=== PATIENT | male | born 1955 | race Caucasian/White ===

== ENCOUNTER 2016-04-29 17:57 | Emergency (ER) | payer MEDICAID, OTHER ==
[~2016-04-29] VITALS: Ht 188 cm; Wt 95.0 kg
[2016-04-29 17:58] VITALS: BP 184/104; PULSE 100; RESP 20; TEMP 97.8; O2SAT 98
[2016-04-29] MEDS ORDERED: ATOR1TAB18 PO (18:35)
[2016-04-29] MEDS ORDERED: OXCA600T PO (18:35)
[2016-04-29] MEDS ORDERED: POTA-245 PO (18:35)
[2016-04-29] MEDS ORDERED: FURO1TAB60 PO (18:35)
[2016-04-29] MEDS ORDERED: OMEP20TA PO (18:35)
[2016-04-29] MEDS ORDERED: AMLO5TAB2 PO (18:35)
[2016-04-29] MEDS ORDERED: SOTA80TA PO (18:35)
[2016-04-29] MEDS ORDERED: FURO1TAB61 PO (18:35)
[2016-04-29] MEDS ORDERED: TERA1CAP3 PO (18:35)
[2016-04-29] MEDS ORDERED: CLOP75TA PO (18:35)
[2016-04-29] MEDS ORDERED: ASPI325T PO (18:35)
[2016-04-29] MEDS ORDERED: SODIUM CHLORIDE 0.9% FLUSH 5 ML FLUSH IVF PRN (19:15)
[2016-04-29] MEDS ORDERED: KETOROLAC TROMETHAMINE 30 MG/ML (IVP) VIAL IVP ONE (19:15)
[2016-04-29] MEDS ORDERED: ONDANSETRON HCL 4 MG/2 ML VIAL IVP ONE (19:15)
[2016-04-29 19:41] VITALS: BP 147/90; PULSE 74; RESP 19; O2SAT 98
[2016-04-29 20:00] LABS: AUTOMATED NEUTROPHIL # 8.7 TH/MM3 (1.8-7.7); BASOPHIL # 0.1 TH/MM3 (0-0.2); BASOPHIL % 0.8 % (0.0-2.0); EOSINOPHIL # 0.8 TH/MM3 (0-0.4); EOSINOPHIL % 6.6 % (0.0-4.0); HEMATOCRIT 45.1 % (39.0-51.0); HEMO FLAGS DIFF FINAL; LYMPH % 11.4 % (9.0-44.0); LYMPHOCYTE # 1.4 TH/MM3 (1.0-4.8); MEAN CELL VOLUME 80.6 FL (80.0-100.0); MEAN CORPUSCULAR HEMOGLOBIN 27.8 PG (27.0-34.0); MEAN CORPUSCULAR HGB CONC 34.5 % (32.0-36.0); MONO % 10.8 % (0.0-8.0); NEUT % 70.4 % (16.0-70.0); PLATELET COUNT 266 TH/MM3 (150-450); RED CELL DISTRIBUTION WIDTH 16.4 % (11.6-17.2); WHITE BLOOD COUNT 12.4 TH/MM3 (4.0-11.0)
[2016-04-29 20:11] LABS: APTT (PATIENT) 28.3 SEC (24.3-30.1); INTERNATIONAL NORMALIZED RATIO 1.1 RATIO; PROTHROMBIN TIME - PATIENT 11.9 SEC (9.8-11.6)
[2016-04-29 20:42] LABS: ALKALINE PHOSPHATASE 110 U/L (45-117); ALT (GPT) 17 U/L (12-78); ANION GAP 10 MEQ/L (5-15); AST (GOT) 24 U/L (15-37); BICARBONATE 23.2 MEQ/L (21.0-32.0); BLOOD UREA NITROGEN 19 MG/DL (7-18); CHLORIDE 105 MEQ/L (98-107); GLOMERULAR FILTRATION RATE 58 ML/MIN (>89); POTASSIUM 3.2 MEQ/L (3.5-5.1); SODIUM (NA) 138 MEQ/L (136-145); TOTAL BILIRUBIN ADULT 0.8 MG/DL (0.2-1.0)
--- NOTE | 2016-04-29 20:43 | PD ---
HPI Chief Complaint: GI Complaint Time Seen by Provider: 19:04 Travel History International Travel<30 days: No Contact w/Intl Traveler<30days: No Traveled to known affect area: No History of Present Illness HPI 61yo M with PMH of seizure on trileptal, CHF s/p pacemaker, HTN presents to the ED with c/o NBNB vomiting and periumbilical abdominal pain for 2 days. Pt also with nonbloody diarrhea today. +Chills. Denies any fever, chest pain, sob, urinary complaints, focal weakness or numbness. Pt is from [place] and is here for vacation has not been able to keep anything down. PFSH Past Medical History Hx Anticoagulant Therapy: Yes Cardiac Catheterization: Yes High Cholesterol: Yes Hypertension: Yes Inguinal Hernia: Yes Seizures: Yes Past Surgical History Appendectomy: Yes Cardiac Surgery: Yes (stent) Coronary Artery Bypass Graft: Yes (2006) Coronary Stent: Yes Joint Replacement: Yes (R knee replacement) Social History Alcohol Use: No Tobacco Use: Yes (pack day) Substance Use: Yes (marijuana 4 days ago) Allergies-Medications (Allergen,Severity, Reaction): Coded Allergies: Celexa (Verified Allergy, Unknown, 04/29/16) Codeine (Verified Allergy, Unknown, 04/29/16) Metoprolol (Verified Allergy, Unknown, 04/29/16) Morphine (Verified Allergy, Unknown, 04/29/16) Penicillin (Verified Allergy, Unknown, 04/29/16) Reported Meds & Prescriptions Reported Meds & Active Scripts Active Zofran Odt (Ondansetron Odt) 4 Mg Tab 4 Mg SL Q6HR PRN Reported Aspirin 325 Mg Tab 325 Mg PO DAILY Terazosin (Terazosin HCl) 1 Mg Cap 1 Mg PO HS Klor-Con M20 (Potassium Chloride Microencaps) 20 Meq Tab 20 Meq PO DAILY Lasix (Furosemide) 40 Mg Tab 40 Mg PO BID Lasix (Furosemide) 80 Mg Tab 80 Mg PO DAILY Clopidogrel (Clopidogrel Bisulfate) 75 Mg Tab 75 Mg PO DAILY Oxcarbazepine 600 Mg Tab 600 Mg PO BID Sotalol (Sotalol HCl) 80 Mg Tab 80 Mg PO BID Omeprazole 20 Mg Tab 20 Mg PO BID Atorvastatin (Atorvastatin Calcium) 80 Mg Tab 80 Mg PO HS Amlodipine (Amlodipine Besylate) 5 Mg Tab 5 Mg PO BID Review of Systems Except as stated in HPI: all other systems reviewed are Neg Physical Exam Narrative GENERAL: 61yo M in mild distress. SKIN: Warm and dry. HEAD: Atraumatic. Normocephalic. EYES: Pupils equal and round. No scleral icterus. No injection or drainage. ENT: No nasal bleeding or discharge. Mucous membranes pink and moist. NECK: Trachea midline. No JVD. CARDIOVASCULAR: Regular rate and rhythm. No murmur appreciated. RESPIRATORY: No accessory muscle use. Clear to auscultation. Breath sounds equal bilaterally. GASTROINTESTINAL: Abdomen soft, +TTP periumbilical region. Mild epigastric ttp. No rebound tenderness or guarding. MUSCULOSKELETAL: No obvious deformities. No clubbing. No cyanosis. No edema. NEUROLOGICAL: Awake and alert. No obvious cranial nerve deficits. Motor grossly within normal limits. Normal speech. PSYCHIATRIC: Appropriate mood and affect; insight and judgment normal. Data Data Last Documented VS Vital Signs Date Time Temp Pulse Resp B/P Pulse Ox O2 Delivery O2 Flow Rate FiO2 04/29/16 19:41 74 19 147/90 98 Room Air 04/29/16 17:58 97.8 Orders Complete Blood Count With Diff (04/29/16 19:09) Comprehensive Metabolic Panel (04/29/16 19:09) Lipase (04/29/16 19:09) Prothrombin Time / Inr (Pt) (04/29/16 19:09) Act Partial Throm Time (Ptt) (04/29/16 19:09) Urinalysis - C+S If Indicated (04/29/16 19:09) Iv Access Insert/Monitor (04/29/16 19:09) Ecg Monitoring (04/29/16 19:09) Oximetry (04/29/16 19:09) Ondansetron Inj (Zofran Inj) (04/29/16 19:15) Sodium Chloride 0.9% Flush (Ns Flush) (04/29/16 19:15) Electrocardiogram (04/29/16 19:09) Ketorolac Inj (Toradol Inj) (04/29/16 19:15) Trileptal (Oxycarbazapine) (04/29/16 20:43) Potassium Chloride (Kcl) (04/29/16 21:00) Labs Laboratory Tests Test 04/29/16 19:00 White Blood Count 12.4 TH/MM3 Red Blood Count 5.60 MIL/MM3 Hemoglobin 15.6 GM/DL Hematocrit 45.1 % Mean Corpuscular Volume 80.6 FL Mean Corpuscular Hemoglobin 27.8 PG Mean Corpuscular Hemoglobin 34.5 % Concent Red Cell Distribution Width 16.4 % Platelet Count 266 TH/MM3 Mean Platelet Volume 10.5 FL Neutrophils (%) (Auto) 70.4 % Lymphocytes (%) (Auto) 11.4 % Monocytes (%) (Auto) 10.8 % Eosinophils (%) (Auto) 6.6 % Basophils (%) (Auto) 0.8 % Neutrophils # (Auto) 8.7 TH/MM3 Lymphocytes # (Auto) 1.4 TH/MM3 Monocytes # (Auto) 1.3 TH/MM3 Eosinophils # (Auto) 0.8 TH/MM3 Basophils # (Auto) 0.1 TH/MM3 CBC Comment DIFF FINAL Differential Comment Prothrombin Time 11.9 SEC Prothromb Time International 1.1 RATIO Ratio Activated Partial 28.3 SEC Thromboplast Time Sodium Level 138 MEQ/L Potassium Level 3.2 MEQ/L Chloride Level 105 MEQ/L Carbon Dioxide Level 23.2 MEQ/L Anion Gap 10 MEQ/L Blood Urea Nitrogen 19 MG/DL Creatinine 1.26 MG/DL Estimat Glomerular Filtration 58 ML/MIN Rate Random Glucose 81 MG/DL Calcium Level 9.2 MG/DL Total Bilirubin 0.8 MG/DL Aspartate Amino Transf 24 U/L (AST/SGOT) Alanine Aminotransferase 17 U/L (ALT/SGPT) Alkaline Phosphatase 110 U/L Total Protein 7.8 GM/DL Albumin 4.0 GM/DL Lipase 76 U/L [facility] Medical Decision Making Medical Screen Exam Complete: Yes Emergency Medical Condition: Yes Interpretation(s) EKG: Atrial paced rhythm. Normal axis. Q wave V1, V2. LVH. Differential Diagnosis Acute gastroenteritis vs. colitis vs. pancreatitis vs. dehydration vs. UTI Narrative Course 61yo M with multiple PMH here with vomiting, abdominal pain and diarrhea. Impression is more gastroenteritis. Labs reviewed, mild leukocytosis. K: 3.2, replaced orally. Lipase normal. Pt given zofran, toradol and states he is no longer nauseous. Pt did not want to wait for the rest of the blood work to come back initially and asked me to pull out his IV. Pt did not allow me to reevaluate and is upset that he has been in the ED for this long. Pt is signing out against medical advice. VS stable. Will give pt zofran prescription. AMA: The risks of leaving against medical advice without further evaluation treatment were discussed with the patient. These risks include cardiac dysfunction, cardiac dysrhythmia, possible heart attack, possible stroke or . The patient indicated understanding of these risks and appeared to have the capacity to make this decision. Diagnosis Primary Impression: Vomiting Qualified Code: R11.10 - Non-intractable vomiting, presence of nausea not specified, unspecified vomiting type Patient Instructions: General Instructions Departure Forms: Tests/Procedures Additional Instructions: Please follow up with your PMD or return to the ED if you change your mind. Med/Other Pt SpecificInfo: Prescription(s) given Scripts Ondansetron Odt (Zofran Odt)4 Mg Tab4 Mg SL Q6HR PRN (Nausea/Vomiting) #10 TAB Ref 0 Prov:Susan Brice DO 04/29/16 Disposition: 07 AGAINST MEDICAL ADVICE Condition: Stable Susan Brice DO Apr 29, 2016 20:43
[2016-04-29] MEDS ORDERED: ZOFR4TAB3 SL (20:57)
[2016-04-29] MEDS ORDERED: POTASSIUM CHLORIDE 20 MEQ CONTROLLED RELEASE TAB PO ONE (21:00)
--- NOTE | 2016-04-30 18:13 | EKG ---
Date Performed: 04/29/2016 Time Performed: 19:39:36 PTAGE: 61 years EKG: Sinus rhythm with premature atrial contractions demand atrial Pacing. MODERATE VOLTAGE CRITERIA FOR LVH, CONSIDER NORMAL VARIANT POSSIBLE SEPTAL MYOCARDIAL INFARCTION MODERATE T-WAVE ABNORMALITY, CONSIDER LATERAL I SCHEMIA ABNORMAL ECG NO PREVIOUS TRACING DOCTOR: Drew Boss Interpretating Date/Time 04/30/2016 18:12:12
== END 2016-04-29 21:20 | disposition left against medical advice (07) ==
LOC: NEPA 17:57
DX: R11.0 Nausea (principal); I10 Essential (primary) hypertension; I49.1 Atrial premature depolarization; E78.00 Pure hypercholesterolemia, unspecified; I50.9 Heart failure, unspecified; R10.33 Periumbilical pain; Z95.0 Presence of cardiac pacemaker; G40.909 Epilepsy, unspecified, not intractable, without status epilepticus; R94.31 Abnormal electrocardiogram [ECG] [EKG]; F17.210 Nicotine dependence, cigarettes, uncomplicated
CPT/HCPCS: 80053; 83690; 85025; 85610; 85730; 93005; 96374; 96375; 99284; J1885; J2405